=== PATIENT | female | born 1965 | race Caucasian/White ===

== ENCOUNTER 2022-06-10 02:01 | Observation (INO) | payer BC, OTHER ==
[~2022-06-10] VITALS: Ht 152.4 cm; Wt 72.6 kg
[~2022-06-10 02:01] MED LIST: HYDR-3919 PO; LEVO500T20 PO; METR500T PO; OMEP40CA20 PO
[2022-06-10 02:20] VITALS: BP_SYST 145
[2022-06-10] MEDS ORDERED: MORPHINE 4 MG INJ. 4 MG/ML VIAL IVP ONE ×2 (03:00→05:30)
[2022-06-10] MEDS ORDERED: NACL 0.9% 1,000 ML IV ONE (03:00)
[2022-06-10] MEDS ORDERED: CEFEPIME 1 GM in D5W 50 ML IV ONE (03:00)
[2022-06-10] MEDS ORDERED: CEFEPIME 1 GM/VIAL (MAXIPIME) ONE (03:48)
[2022-06-10 04:43] LABS: BASOPHILS % (AUTO) 0.3 % (0.0-2.0); EOSINOPHILS # (AUTO) 0.2 K/uL (0.0-0.4); EOSINOPHILS % (AUTO) 2.7 % (0.0-4.0); HEMATOCRIT 34.1 % (36-48); LYMPHOCYTES # (AUTO) 1.9 K/uL (1.0-5.5); MEAN CORPUSCULAR VOLUME 85 fL (79.0-98.0); MONOCYTES # (AUTO) 0.4 K/uL (0.0-1.0); MONOCYTES % (AUTO) 6.1 % (1.7-9.3); NEUTROPHILS # (AUTO) 4.1 K/uL (1.8-7.7); NEUTROPHILS % (AUTO) 61.9 % (40.0-70.0); PLATELET COUNT (AUTO) 279 K/uL (130-430); RED BLOOD CELL COUNT(AUTO) 4.03 MIL/uL (4.2-6.2); RED CELL DISTRIBUTION WIDTH 13.9 % (9.0-15.0); WHITE BLOOD COUNT (AUTO) 6.7 K/uL (4.8-10.8)
[2022-06-10 04:57] LABS: CALCIUM 8.5 mg/dL (8.4-11.0); CREATININE 0.69 mg/dL (0.55-1.30); POTASSIUM 3.7 mmol/L (3.5-5.1)
[2022-06-10 05:10] LABS: C-REACTIVE PROTEIN QUANT 3.6 mg/dL (0-0.5); TOTAL BILIRUBIN 0.5 mg/dL (0.0-1.0)
[2022-06-10] MEDS ORDERED: OXYC-128 PO (05:24)
[2022-06-10] MEDS ORDERED: IBUP-1969 PO (05:24)
[2022-06-10] MEDS ORDERED: CLIN-142 PO (05:24)
[2022-06-10 05:31] LABS: ERYTHROCYTE SEDIMENTATION RATE 14 MM/HR (0-20)
[2022-06-10] MEDS ORDERED: MAG HYDROX/AL HYDROX/SIMETH 30 ML, DICYCLOMINE HCL 20 MG, LIDOCAINE VISCOUS 2% 15ML (PO... PO ONE ×3 (06:00)
[2022-06-10] MEDS ORDERED: MORPHINE 4 MG INJ. 4 MG/ML VIAL ONE ×2 (06:07→10:04)
[2022-06-10] MEDS ORDERED: MAG-AL HYDROX/SIMETH 30 ML UDC ONE (06:08)
[2022-06-10] MEDS ORDERED: methylPREDNISolone SOD SUCC/PF 62.5 MG/ML VIAL IVP ONE (07:30)
[2022-06-10] MEDS ORDERED: DIPHENHYDRAMINE INJ 50 MG/ML VIAL IVP ONE (07:30)
[2022-06-10] MEDS: MORPHINE 4 MG INJ. 4 MG/ML VIAL IVP PRN ×3 (10:18→23:43)
[2022-06-10] MEDS: D5/0.45 NS 1,000 ML IV SCH ×2 (10:19→22:30)
[2022-06-10 11:53] VITALS: BP_SYST 128
[2022-06-10] MEDS: CLINDAMYCIN 900 mg/50mL D5W 50 ML IV SCH ×2 (14:12→22:00)
[2022-06-10] MEDS ORDERED: DICY10CA13 PO (17:21)
[2022-06-10] MEDS ORDERED: LISI20TA30 PO (17:21)
[2022-06-10 20:00] VITALS: BP_SYST 117
[2022-06-11] MEDS: CLINDAMYCIN 900 mg/50mL D5W 50 ML IV SCH ×3 (06:48→20:07)
[2022-06-11 08:00] VITALS: BP_SYST 115
[2022-06-11] MEDS ORDERED: DICYCLOMINE HCL 10 MG CAPSULE PO SCH (09:00)
[2022-06-11] MEDS ORDERED: lisinopriL 20 MG TABLET PO SCH (09:00)
[2022-06-11] MEDS ORDERED: DIPHENHYDRAMINE HCL 12.5 MG/5 ML UDC PO PRN (09:30)
[2022-06-11] MEDS ORDERED: ACETAMINOPHEN 500 MG TABLET PO PRN (09:30)
[2022-06-11] MEDS ORDERED: NALOXONE HCL 0.4 MG/ML AMP (NARCAN) IVP PRN (09:30)
[2022-06-11 11:31] VITALS: BP_SYST 137
[2022-06-11] MEDS: HYDROcodone/ACETAMIN 5-325 MG TAB (NORCO/ VICODIN) PO PRN ×2 (11:53→17:03)
[2022-06-11] MEDS: D5/0.45 NS 1,000 ML IV SCH (11:54)
[2022-06-11 17:00] VITALS: BP_SYST 127
[2022-06-11 18:58] VITALS: BP_SYST 119
[2022-06-11 20:00] VITALS: BP_SYST 124
[2022-06-11] MEDS: MORPHINE 4 MG INJ. 4 MG/ML VIAL IVP PRN (20:06)
== END 2022-06-11 21:30 | disposition home or self-care (01) ==
LOC: SED 02:01 → SMU 09:21
PROVIDERS: ADMIT Internal Medicine; ATTEND Internal Medicine
DX: K04.7 Periapical abscess without sinus (principal); Z20.822 Contact with and (suspected) exposure to COVID-19; L03.211 Cellulitis of face; F17.200 Nicotine dependence, unspecified, uncomplicated; Z88.0 Allergy status to penicillin; Z79.899 Other long term (current) drug therapy
CPT/HCPCS: 96361 ×2; 96365; 96366 ×2; 96375; 96376 ×2; 80053; 85025; 85651; 86140; 87040; 36415; 70486; 76376; 96367; 99285; 83605; 87426; 93005; 71045; J0692; J3490 ×2; J1200; J1956 ×2; J2930; J2270 ×2; G0378 ×2

== ENCOUNTER 2022-08-11 09:04 | Outpatient (CLI) | payer OTHER ==
[~2022-08-11 09:04] MED LIST changes: +CLIN-142 PO; +DICY10CA13 PO; +IBUP-1969 PO; +LISI20TA30 PO; +OXYC-128 PO
== END 2022-08-11 19:48 | disposition home or self-care (01) ==
LOC: SRD 09:04
PROVIDERS: ATTEND Internal Medicine Gastroenterology
DX: K63.3 Ulcer of intestine (principal); K52.9 Noninfective gastroenteritis and colitis, unspecified; R14.0 Abdominal distension (gaseous)
CPT/HCPCS: 74250-TC